=== PATIENT | female | born 1985 | race Caucasian/White ===

== ENCOUNTER 2016-11-11 17:15 | Emergency (ER) | payer OTHER ==
[2016-11-11 17:17] VITALS: BP 119/72; PULSE 66; RESP 20; TEMP 97.9; O2SAT 100
--- NOTE | 2016-11-11 17:30 | PD ---
HPI Chief Complaint: Bleeding Time Seen by Provider: 17:29 Travel History International Travel<30 days: No Contact w/Intl Traveler<30days: No Traveled to known affect area: No History of Present Illness HPI 31-year-old female LMP of August 29 came in with history of vaginal bleeding. She knows that she is and has had one OB visit where a Pap smear was done as per her. This was last Sunday. Patient started having some spotting since past 3 days but today the bleeding got more fluent. Now it is like a period bleed but no clots. She has slight sharp pain on the left adnexal area. No history of fever or chills. No severe cramps or spasm. Patient is A0. She has not had an ultrasound to establish an in utero . Patient is not speaking age but her friend is here with her who is doing the translation for her. [facility] Past Medical History Narrative Medical List of her past medical, surgical, social and family history is reviewed from the nursing note. ?: Social History Tobacco Use: No Allergies-Medications (Allergen,Severity, Reaction): Coded Allergies: No Known Allergies (Unverified , 11/11/16) Comments No known drug allergies. Reported Meds & Prescriptions Reported Meds & Active Scripts Active No Active Prescriptions or Reported Medications Narrative Medication Awaiting for the nurse to do the medical reconciliation. Review of Systems Except as stated in HPI: all other systems reviewed are Neg Physical Exam Narrative GENERAL: Awake, alert, no obvious distress SKIN: Focused skin assessment warm/dry. HEAD: Atraumatic. Normocephalic. EYES: Pupils equal and round. No scleral icterus. No injection or drainage. ENT: No nasal bleeding or discharge. Mucous membranes pink and moist. NECK: Trachea midline. No JVD. CARDIOVASCULAR: Regular rate and rhythm. No murmur appreciated. RESPIRATORY: No accessory muscle use. Clear to auscultation. Breath sounds equal bilaterally. GASTROINTESTINAL: Abdomen soft, non-tender, nondistended. Hepatic and splenic margins not palpable. MUSCULOSKELETAL: No obvious deformities. No clubbing. No cyanosis. No edema. NEUROLOGICAL: Awake and alert. No obvious cranial nerve deficits. Motor grossly within normal limits. Normal speech. PSYCHIATRIC: Appropriate mood and affect; insight and judgment normal. Data Data Last Documented VS Vital Signs Date Time Temp Pulse Resp B/P Pulse Ox O2 Delivery O2 Flow Rate FiO2 11/11/16 17:28 16 98 Room Air 11/11/16 17:17 97.9 66 119/72 Orders Beta Hcg (Quant/Titer) (11/11/16 17:34) Complete Blood Count With Diff (11/11/16 17:34) Basic Metabolic Panel (Bmp) (11/11/16 17:34) Type And Screen (11/11/16 17:34) Urinalysis - C+S If Indicated (11/11/16 17:34) Ed Urine Pregnancytest Poc (11/11/16 17:34) Ed Poc Ultrasound (11/11/16 17:34) Us Pelvis (Ques Preg/Ectopic) (11/11/16 ) Urine Culture (11/11/16 17:40) Nitrofurantoin Monohyd Macrocr (Macrobid (11/11/16 18:30) Acetaminophen (Tylenol) (11/11/16 21:45) Mandatory Outpatient Referral (11/11/16 21:48) Labs Laboratory Tests Test 11/11/16 17:40 White Blood Count 6.7 TH/MM3 Red Blood Count 4.34 MIL/MM3 Hemoglobin 14.1 GM/DL Hematocrit 41.2 % Mean Corpuscular Volume 95.0 FL Mean Corpuscular Hemoglobin 32.5 PG Mean Corpuscular Hemoglobin 34.2 % Concent Red Cell Distribution Width 13.4 % Platelet Count 232 TH/MM3 Mean Platelet Volume 7.7 FL Neutrophils (%) (Auto) 53.3 % Lymphocytes (%) (Auto) 36.9 % Monocytes (%) (Auto) 7.7 % Eosinophils (%) (Auto) 1.5 % Basophils (%) (Auto) 0.6 % Neutrophils # (Auto) 3.6 TH/MM3 Lymphocytes # (Auto) 2.5 TH/MM3 Monocytes # (Auto) 0.5 TH/MM3 Eosinophils # (Auto) 0.1 TH/MM3 Basophils # (Auto) 0.0 TH/MM3 CBC Comment DIFF FINAL Differential Comment Urine Color YELLOW Urine Turbidity HAZY Urine pH 6.0 Urine Specific [place] 1.019 Urine Protein TRACE mg/dL Urine Glucose (UA) NEG mg/dL Urine Ketones NEG mg/dL Urine Occult Blood MOD Urine Nitrite NEG Urine Bilirubin NEG Urine Urobilinogen LESS THAN 2.0 MG/DL Urine Leukocyte Esterase SMALL Urine RBC 150 /hpf Urine WBC 12 /hpf Urine Squamous Epithelial 4 /hpf Cells Urine Bacteria RARE /hpf Urine Mucus FEW /lpf Microscopic Urinalysis Comment CULTURE INDICATED Sodium Level 138 MEQ/L Potassium Level 3.5 MEQ/L Chloride Level 105 MEQ/L Carbon Dioxide Level 25.7 MEQ/L Anion Gap 7 MEQ/L Blood Urea Nitrogen 7 MG/DL Creatinine 0.58 MG/DL Estimat Glomerular Filtration 120 ML/MIN Rate Random Glucose 93 MG/DL Calcium Level 9.5 MG/DL Human Chorionic Gonadotropin, 2808 MIU/ML Quant Blood Type A POSITIVE Antibody Screen NEGATIVE Blood Bank Comment MDM Medical Decision Making Medical Screen Exam Complete: Yes Emergency Medical Condition: Yes Medical Record Reviewed: Yes Differential Diagnosis Threatened , ectopic , missed Narrative Course 6:03 PM awaiting for the blood test result. Based on the bedside pelvic ultrasound done by me and unable to see a fetus or cardiac activity and the gestational sac I have ordered an official ultrasound. Awaiting for the ultrasound to be done and resulted. 7:07 PM I peaked 10 while the chha was doing the study. She is doing the transabdominal part of it and has had just the gestational sac visualized as me. She is going to do the transvaginal as well. No fetus visualized or cardiac activity so far. The beta-hCG is back and measuring low for 8 weeks of gestation. 9:30 PM the ultrasound report finally got released which shows a pseudo- gestational sac with complex right adnexal structure which the radiologist is reading as either corpus luteal cyst or ectopic. I discussed the case with OB hospitalist Dr. Elizabeth and he recommended to have the patient follow up with her OB on Sunday or return sooner if symptoms worsen. I discussed this with the patient and her friend who will do the translation. I explained to them about the 2 possibilities. I was told that patient was seen by an [facility] with [facility] and was recommended to follow up with [facility] where she has an appointment on November 21 but has not seen anybody there yet. Given this possibility I think the chances of her being seen on Sunday are slim. I will give her a mandatory follow-up with the COMMERCIAL SALES CONSULTANT on-call. However of also let them know to return by Sunday evening to the ER if there is no follow-up appointment to get the beta-hCG repeat Quant done. Procedures Procedure Narrative Emergency Department Pelvic ultrasound was performed with patient consent. The curvilinear probe was used in the transverse and sagittal views within the suprapubic region revealing intrauterine gestational sac with fuzzy pole. No cardiac activity seen. Unable to measure the crown-rump length since the intrauterine material appeared to be very fuzzy and ill defined EKG Prior to Arrival: No Diagnosis Primary Impression: Empty gestational sac with ongoing Additional Impression: Vaginal bleeding Referrals: Erna Myers MD 2 days Primary Care Physician 2 days Additional Instructions: Please return to the ER if the condition worsens or any other new concerns. Otherwise follow-up with your OB first thing Sunday morning. Drink lots of fluid, no intercourse, no douching or tampons or anything in the vagina until seen by OB. You can take Tylenol or Motrin for the pain. Please have your OB repeat the beta hCG in 48 hours which should be on Sunday as well. In case the OB cannot see you on Sunday please return to the emergency room to get this blood work done. You will be given a mandatory follow-up with the OB who is name and number been given to you in this discharge instruction. Scripts No Active Prescriptions or Reported Meds Disposition: 01 DISCHARGE HOME Condition: Stable Nadya Brooke MD Nov 11, 2016 17:29
[2016-11-11 18:12] LABS: AUTOMATED NEUTROPHIL # 3.6 TH/MM3 (1.8-7.7); BASOPHIL % 0.6 % (0.0-2.0); EOSINOPHIL # 0.1 TH/MM3 (0-0.4); EOSINOPHIL % 1.5 % (0.0-4.0); HEMATOCRIT 41.2 % (35.0-46.0); HEMO FLAGS DIFF FINAL; LYMPH % 36.9 % (9.0-44.0); LYMPHOCYTE # 2.5 TH/MM3 (1.0-4.8); MEAN CORPUSCULAR HEMOGLOBIN 32.5 PG (27.0-34.0); MEAN CORPUSCULAR HGB CONC 34.2 % (32.0-36.0); MONO % 7.7 % (0.0-8.0); NEUT % 53.3 % (16.0-70.0); PLATELET COUNT 232 TH/MM3 (150-450); RED BLOOD COUNT 4.34 MIL/MM3 (4.00-5.30); RED CELL DISTRIBUTION WIDTH 13.4 % (11.6-17.2); WHITE BLOOD COUNT 6.7 TH/MM3 (4.0-11.0)
[2016-11-11 18:17] LABS: BACTERIA, URINE RARE /hpf; BLOOD, URINE MOD (NEG); COMMENT (UR) CULTURE INDICATED; CULTURE IF INDICATED CULTURE INDICATED; GLUCOSE,URINE NEG (NEG); KETONE, URINE NEG (NEG); MUCUS URINE FEW /lpf (OCC); NITRITE,URINE NEG (NEG); SQUAMOUS EPITHELIAL CELL URINE 4 /hpf (0-5); URINE COLOR YELLOW (YELLW/STRAW)
[2016-11-11] MEDS ORDERED: NITROFURANTOIN MONOHYD MACROCR 100 MG CAP PO ONE (18:30)
[2016-11-11 18:52] LABS: BICARBONATE 25.7 MEQ/L (21.0-32.0); POTASSIUM 3.5 MEQ/L (3.5-5.1)
--- NOTE | 2016-11-11 21:22 | RADRPT ---
EXAM DATE/TIME: 11/11/2016 18:51 [facility] COMPARISON: No previous studies available for comparison. INDICATIONS : Vaginal bleeding. LAB(S): Beta-hC MEDICAL HISTORY : . Vaginal bleeding. SURGICAL HISTORY : None. ENCOUNTER: Initial ACUITY: 3 days PAIN SCORE: 3/10 LOCATION: Bilateral pelvis MEASUREMENTS: UTERUS: 8.3 x 5.8 x 4.4 cm ENDOMETRIAL STRIPE: 8 mm RIGHT OVARY: 2.8 x 1.9 x 1.4 cm LEFT OVARY: cm CROWN RUMP LENGTH: = WKS DAYS FINDINGS: UTERUS: There is a 2.7 x 4.6 x 2.0 cm cystic area in the endometrial cavity. An embryonic pole or yolk sac is not seen. There is fluid within the endocervical canal. RIGHT OVARY: There is a 1.4 x 1.1 x 1.1 cm complex mass with a central cystic area a peripheral hypoechoic rim wit h some rim enhancement seen on the color images. There is prominent flow seen in the right adnexal re gion. LEFT OVARY: The left ovary appears normal in size. There is prominent flow seen in the left adnexal region. MISCELLANEOUS: No free fluid. CONCLUSION: 1. Large cystic area in the endometrial cavity without an embryonic pole. A. pseudo-gestational sac n eeds to be considered. 2. There is prominent vascular flow seen on the color images in the adnexal regions bilaterally. Ther e is a 1.4 cm complex cystic area at the right adnexa. A corpus luteum or an ectopic could have this appearance. The ectopic can be considered given the lack of a intrauterine gestation. Rios Griffin MD on November 11, 2016 at 21:15 Board Certified Radiologist. This report was verified electronically.
[2016-11-11] MEDS ORDERED: ACETAMINOPHEN 325 MG TAB PO ONE (21:45)
== END 2016-11-11 22:26 | disposition home or self-care (01) ==
LOC: NEPD 17:15
DX: O20.9 Hemorrhage in early pregnancy, unspecified (principal); R93.8 Abnormal findings on diagnostic imaging of other specified body structures; R10.2 Pelvic and perineal pain; Z3A.01 Less than 8 weeks gestation of pregnancy
CPT/HCPCS: 76700; 80048; 81001; 84702; 84703; 85025; 86850; 86900; 86901; 87086

== ENCOUNTER 2016-11-13 22:21 | Emergency (ER) | payer OTHER ==
[2016-11-13 22:24] VITALS: BP 123/74; PULSE 90; RESP 16; TEMP 98.9; O2SAT 100
--- NOTE | 2016-11-13 22:31 | PD ---
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 She was found at that time to have empty gestational sac. Her beta hCG was 2808. At that time she was found to have an area on the right that could either be a luteal cyst versus ectopic . Patient was discharged after the provider discussed her case with the [place] hospitalist OB. She was to follow-up with her [facility] today however the office was closed. She was instructed to return here for repeat beta hCG if she was unable to get into her [facility]. Patient reports continued vaginal bleeding, not heavy. Mild suprapubic pain, greater on the left than the right. No abnormal discharge the sites of bleeding. No fever or chills. No nausea or vomiting. No other symptoms to report. PFSH Past Medical History Medical History: Denies Significant Hx Social History Tobacco Use: No Allergies-Medications (Allergen,Severity, Reaction): Coded Allergies: No Known Allergies (Unverified , 11/11/16) Reported Meds & Prescriptions Reported Meds & Active Scripts Active No Active Prescriptions or Reported Medications Review of Systems Except as stated in HPI: all other systems reviewed are Neg Physical Exam Narrative GENERAL: Well-nourished female patient, mostly Peruvian-speaking, in no acute distress SKIN: Focused skin assessment warm/dry. HEAD: Atraumatic. Normocephalic. EYES: Pupils equal and round. No scleral icterus. No injection or drainage. ENT: No nasal bleeding or discharge. Mucous membranes pink and moist. NECK: Trachea midline. No JVD. CARDIOVASCULAR: Regular rate and rhythm. No murmur appreciated. RESPIRATORY: No accessory muscle use. Clear to auscultation. Breath sounds equal bilaterally. GASTROINTESTINAL: Abdomen soft, nondistended. Slight suprapubic tenderness to palpation. Hepatic and splenic margins not palpable. MUSCULOSKELETAL: No obvious deformities. No clubbing. No cyanosis. No edema. NEUROLOGICAL: Awake and alert. No obvious cranial nerve deficits. Motor grossly within normal limits. Normal speech. PSYCHIATRIC: Appropriate mood and affect; insight and judgment normal. Data Data Last Documented VS Vital Signs Date Time Temp Pulse Resp B/P Pulse Ox O2 Delivery O2 Flow Rate FiO2 11/13/16 22:24 98.9 90 16 123/74 100 Orders Iv Access Insert/Monitor (11/13/16 22:31) Beta Hcg (Quant/Titer) (11/13/16 22:31) Labs Laboratory Tests Test 11/13/16 22:55 Human Chorionic Gonadotropin, 2157 MIU/ML Quant MDM Medical Decision Making Medical Screen Exam Complete: Yes Emergency Medical Condition: Yes Medical Record Reviewed: Yes Differential Diagnosis Ectopic versus threatened versus unchanged miscarriage versus neoplasm versus menses Narrative Course 31-year-old female presents to the emergency department for recheck of her beta hCG. Patient appears without distress. Her vital signs are stable. She does have mild suprapubic tenderness to palpation otherwise abdominal exam is benign. Beta hCG is repeated and 2157. This is a decrease from her most recent visit. Patient's concerning area on ultrasound was on the right however her pain is more on the left. The right lower quadrant is benign on assessment. Her vital signs are stable. I discussed the patient my attending physician who agrees the patient can be discharged at this time and follow-up with her [facility]. Plan was discussed with the patient and her friend at bedside who is interpreting. They agree to return immediately with any acute worsening symptoms. Diagnosis Primary Impression: Empty gestational sac with ongoing Additional Impression: Vaginal bleeding Referrals: [facility] Patient Instructions: General Instructions, Threatened Miscarriage (ED) Additional Instructions: Follow-up with your [facility] Call Sunday for an appointment Return immediately to the emergency department with any acute worsening of symptoms Med/Other Pt SpecificInfo: No Change to Meds Scripts No Active Prescriptions or Reported Meds Disposition: 01 DISCHARGE HOME Condition: Stable FaviolaAisha JUAREZ Nov 13, 2016 22:31
[2016-11-13 23:47] LABS: BETA HCG QUANT 2157 MIU/ML (0-5)
== END 2016-11-14 00:28 | disposition home or self-care (01) ==
LOC: NEPD 22:21
DX: O26.899 Other specified pregnancy related conditions, unspecified trimester (principal); O20.9 Hemorrhage in early pregnancy, unspecified; Z3A.00 Weeks of gestation of pregnancy not specified
CPT/HCPCS: 84702; 99281

== ENCOUNTER 2016-12-06 16:39 | Emergency (ER) | payer OTHER ==
[~2016-12-06] VITALS: Ht 162.6 cm; Wt 58.0 kg
[2016-12-06 16:41] VITALS: BP 126/64; PULSE 98; RESP 24; TEMP 97.8; O2SAT 100
--- NOTE | 2016-12-06 19:45 | PD ---
HPI Chief Complaint: Bartender Manager Problem/Complaint Time Seen by Provider: 19:35 Travel History International Travel<30 days: No Contact w/Intl Traveler<30days: No Traveled to known affect area: No History of Present Illness HPI The patient was seen and examined in the presence of the nurse. This patient complains of vaginal bleeding and pelvic cramping. Patient was seen here 4 weeks ago and was thought to have spontaneous miscarriage or . She saw her OB provider today and was supposed to come back tomorrow to the OBs office for a repeat beta titer and ultrasound. However the patient didn't find a convenient because she wants to go to [place] tomorrow so she came to the emergency room to get her testing done. She is having cramping and bleeding. Severity is moderate. No alleviating factors. Duration 4 weeks. PFSH Past Medical History Thyroid Disease: Yes ?: Not Past Surgical History Surgical History: No Previous Surgery Social History Alcohol Use: No Tobacco Use: No Substance Use: No Allergies-Medications (Allergen,Severity, Reaction): Coded Allergies: No Known Allergies (Unverified , 11/21/16) Reported Meds & Prescriptions Reported Meds & Active Scripts Active Tramadol (Tramadol HCl) 50 Mg Tab 50 Mg PO Q6H PRN Review of Systems General / Constitutional: No: Fever Eyes: No: Visual changes HENT: No: Headaches Cardiovascular: No: Chest Pain or Discomfort Respiratory: No: Shortness of Breath Gastrointestinal: No: Abdominal Pain Genitourinary: Positive: Pelvic Pain, Vaginal Bleeding, No: Dysuria Musculoskeletal: No: Pain Skin: No Rash Neurologic: No: Weakness Psychiatric: No: Depression Endocrine: No: Polydipsia Hematologic/Lymphatic: No: Easy Bruising Physical Exam Narrative GENERAL: Well-nourished, well-developed patient with vaginal bleeding and pelvic cramping . SKIN: Focused skin assessment reveals no rash and nodules. Skin is Warm and dry. HEAD: Atraumatic. Normocephalic. EYES: Pupils equal and round. No scleral icterus. No injection or drainage. ENT: No nasal bleeding or discharge. Mucous membranes pink and moist. NECK: Trachea midline. No JVD. CARDIOVASCULAR: Regular rate and rhythm. No murmur appreciated. RESPIRATORY: No accessory muscle use. Clear to auscultation. Breath sounds equal bilaterally. GASTROINTESTINAL: Abdomen soft, some suprapubic tenderness without rebound or guarding, nondistended. Hepatic and splenic margins not palpable. MUSCULOSKELETAL: No obvious deformities. No clubbing. No cyanosis. No edema. NEUROLOGICAL: Awake and alert. No obvious cranial nerve deficits. Motor grossly within normal limits. Normal speech. PSYCHIATRIC: Appropriate mood and affect; insight and judgment normal. Pelvic: Cervix closed. Very scant blood in the vault. No active hemorrhage. No discharge. Data Data Last Documented VS Vital Signs Date Time Temp Pulse Resp B/P Pulse Ox O2 Delivery O2 Flow Rate FiO2 12/06/16 16:41 97.8 98 24 126/64 100 Room Air Orders Iv Access Insert/Monitor (12/06/16 19:42) Complete Blood Count With Diff (12/06/16 19:42) Beta Hcg (Quant/Titer) (12/06/16 19:42) Us Pelvis (Ques Pr/Ect)W Trans (12/06/16 ) Labs Laboratory Tests Test 12/06/16 19:58 White Blood Count 8.7 TH/MM3 Red Blood Count 3.95 MIL/MM3 Hemoglobin 13.2 GM/DL Hematocrit 37.7 % Mean Corpuscular Volume 95.6 FL Mean Corpuscular Hemoglobin 33.4 PG Mean Corpuscular Hemoglobin 34.9 % Concent Red Cell Distribution Width 13.1 % Platelet Count 218 TH/MM3 Mean Platelet Volume 7.2 FL Neutrophils (%) (Auto) 87.3 % Lymphocytes (%) (Auto) 7.4 % Monocytes (%) (Auto) 5.0 % Eosinophils (%) (Auto) 0.0 % Basophils (%) (Auto) 0.3 % Neutrophils # (Auto) 7.6 TH/MM3 Lymphocytes # (Auto) 0.6 TH/MM3 Monocytes # (Auto) 0.4 TH/MM3 Eosinophils # (Auto) 0.0 TH/MM3 Basophils # (Auto) 0.0 TH/MM3 CBC Comment DIFF FINAL Differential Comment Human Chorionic Gonadotropin, 92 MIU/ML Quant MDM Medical Decision Making Medical Screen Exam Complete: Yes Emergency Medical Condition: Yes Medical Record Reviewed: Yes Differential Diagnosis Spontaneous miscarriage, retained placental products, ectopic Narrative Course I have reviewed the patient's electronic medical record. Reviewed her visit from November 11 and November 13, 2016 including her labs and ultrasound results IV placed CBC is normal Beta hCG is down from 1999 to Transvaginal ultrasound reveals an abnormal gestational sac in the uterus that' s not consistent with a viable fetus. Patient had a spontaneous miscarriage several weeks ago but is having persistent bleeding and cramping. She is to call her OB physician tomorrow who she just saw today. She will discuss D&C. [place] for outpatient follow-up. I wrote her 15 tramadol. Diagnosis Primary Impression: Spontaneous miscarriage Additional Impressions: Pelvic cramping Vaginal bleeding Additional Instructions: Call OB physician tomorrow for follow-up recommendations The patient was warned about potential sedation for the medications they will receive on prescription. Med/Other Pt SpecificInfo: Prescription(s) given Scripts Tramadol 50 Mg Tab50 Mg PO Q6H PRN (PAIN) #15 TAB Ref 0 Prov:Bhanu Segovia MD 12/06/16 Disposition: 01 DISCHARGE HOME Condition: Stable Bhanu Segovia MD Dec 06, 2016 19:45
[2016-12-06 20:10] LABS: AUTOMATED NEUTROPHIL # 7.6 TH/MM3 (1.8-7.7); BASOPHIL % 0.3 % (0.0-2.0); HEMATOCRIT 37.7 % (35.0-46.0); HEMO FLAGS DIFF FINAL; LYMPH % 7.4 % (9.0-44.0); LYMPHOCYTE # 0.6 TH/MM3 (1.0-4.8); MEAN CELL VOLUME 95.6 FL (80.0-100.0); MEAN CORPUSCULAR HEMOGLOBIN 33.4 PG (27.0-34.0); MEAN CORPUSCULAR HGB CONC 34.9 % (32.0-36.0); NEUT % 87.3 % (16.0-70.0); PLATELET COUNT 218 TH/MM3 (150-450); RED BLOOD COUNT 3.95 MIL/MM3 (4.00-5.30); RED CELL DISTRIBUTION WIDTH 13.1 % (11.6-17.2); WHITE BLOOD COUNT 8.7 TH/MM3 (4.0-11.0)
[2016-12-06 20:36] LABS: BETA HCG QUANT 92 MIU/ML (0-5)
--- NOTE | 2016-12-06 22:29 | RADRPT ---
EXAM DATE/TIME: 12/06/2016 21:28 [facility] COMPARISON: No previous studies available for comparison. INDICATIONS : Bleeding with . LAB(S): Beta-hC MEDICAL HISTORY : Hypothyroidism. Endometriosis. Polycystic ovarian syndrome. Vaginal infection. SURGICAL HISTORY : None. ENCOUNTER: Subsequent ACUITY: 1 month PAIN SCORE: 7/10 LOCATION: Bilateral pelvis MEASUREMENTS: TRANSABDOMINAL: UTERUS: 9.4 x 7.2 x 5.6 cm TRANSVAGINAL: ENDOMETRIAL STRIPE: 8 mm RIGHT OVARY: 2.2 x 1.8 x 1.1 cm LEFT OVARY: 3.1 x 1.8 x 1.8 cm FREE FLUID: No FINDINGS: UTERUS: Irregular gestational sac. No yolk sac or pole. There is also fluid in the endometrial canal. RIGHT OVARY: Simple cyst measures 9 x 5 x 6 mm. LEFT OVARY: Simple cyst measures 15 x 13 x 11 mm. Smaller cystic structures also noted. MISCELLANEOUS: No free fluid. CONCLUSION: 1. Irregular gestational sac without yolk sac or pole likely nonviable , although the neck Neck still cannot be excluded given the findings but felt to be less likely.Close followup recom mended. 2. Dominant follicles in each ovary. 1. Juliocesar Shoemaker MD on December 06, 2016 at 22:24 Board Certified Radiologist. This report was verified electronically.
[2016-12-06] MEDS ORDERED: TRAM50TA PO (22:54)
== END 2016-12-06 23:08 | disposition home or self-care (01) ==
LOC: NEPD 16:39
DX: O03.9 Complete or unspecified spontaneous abortion without complication (principal); R10.2 Pelvic and perineal pain; O99.280 Endocrine, nutritional and metabolic diseases complicating pregnancy, unspecified trimester; E07.9 Disorder of thyroid, unspecified
CPT/HCPCS: 76700; 76817; 84702; 85025; 99284

== ENCOUNTER → 2016-12-12 | Day surgery (SDC) | payer OTHER ==
--- NOTE | 2016-12-07 16:31 | MH ---
cc: JAMIE FERRARI MD DATE OF ADMISSION: 12/12/2016 REASON FOR ADMISSION Dilatation and curettage. HISTORY OF PRESENT ILLNESS This patient is a 31-year-old female, she is 2, para 1, who first reported having an incomplete miscarriage on 11/11. She was seen in the office and at that time was bleeding lightly and she was given the option of conservative management or dilatation and curettage. She elected to not have a dilatation and curettage and then was seen several times within the office and in the emergency room for bleeding. She was just seen recently on 12/06 and at that time had an ultrasound scan which revealed a pseudosac in the uterus and because of the bleeding at that time the patient wished to proceed with dilatation and curettage. MEDICAL HISTORY The patient's medical history is significant for hypothyroidism. SOCIAL HISTORY She is a nonsmoker, nondrinker. ALLERGIES SHE HAS NO KNOWN ALLERGIES TO MEDICATION. SURGICAL HISTORY Essentially noncontributory. REVIEW OF SYSTEMS Essentially noncontributory. PHYSICAL EXAMINATION GENERAL: The patient is well-developed, well-nourished, in no acute distress. VITAL SIGNS: Blood pressure was 110/65, pulse was 70, respirations were 12. HEAD, EYES, EARS, NOSE AND THROAT: Negative. CHEST: Clear to auscultation. CARDIOVASCULAR: Revealed a regular rate. ABDOMEN: The abdomen was soft, bowel sounds were positive. PELVIC EXAMINATION: The cervix was slightly dilated. The patient was bleeding lightly. There were no adnexal masses palpable. EXTREMITIES: Revealed no cyanosis, clubbing or edema. NEUROPSYCHIATRIC: The patient oriented x3 and showed no gross neurocranial deficit. IMPRESSION Impression on admission was intrauterine demise, incomplete . PLAN The plan is for suction and sharp curetting. MD VARUN Aleman/JULIUS /2:09 PM /4:04 PM
[~2016-12-12] VITALS: Ht 162.6 cm; Wt 58.2 kg
[~2016-12-12] MED LIST: ACETAMINOPHEN 325 MG TAB ONE; ACETAMINOPHEN 325 MG TAB PO ONE; CHLORHEXIDINE GLUCONATE 2 % 1 PACK (2 CLOTHS) TOPICAL PRN; DO NOT ADM ANY ANTICOAGULANT DRUGS PRN; FAMOTIDINE 20 MG/2 ML VIAL ONE; INSULIN HUMAN REGULAR 1,000 UNITS/10 ML VIAL SQ PRN; KETOROLAC TROMETHAMINE 60 MG/2 ML (IM) VIAL IM ONE; LACTATED RINGER'S 1000 ML IV PRN; LEVO13.5 I-UTERINE; METOPROLOL TARTRATE 25 MG TAB PO PRN; MIDAZOLAM HCL 2 MG/2 ML VIAL ONE; ONDANSETRON HCL 4 MG/2 ML VIAL IV PUSH ONE; OXYTOCIN 10 UNIT/ML AMP ONE; PHENYLEPH/NS 1000 MCG/10 ML SYR IV ONE; POVIDONE IODINE 5% (ANTISEPSIS KIT) 4 APPLICATIONS EACH NARE PRN; PROPOFOL 200 MG/20 ML AMP IV ONE; SODIUM CHLORID 0.9% 500 ML IV PRN; TRAM50TA PO; ceFAZolin 2 GM PREMIX 50 ML IV SCH; ePHEDrine/NS 25 MG/5 ML SYR IV ONE
[2016-12-12 06:28] VITALS: BP 112/65; PULSE 77; RESP 20; TEMP 98.1; O2SAT 100
[2016-12-12 09:59] VITALS: BP 94/60; PULSE 73; RESP 20; TEMP 98.2; O2SAT 100
--- NOTE | 2016-12-12 17:46 | MP ---
cc: GILBERTO SAMANIEGO MD DATE OF SURGERY 12/12/2016 PREOPERATIVE DIAGNOSIS Incomplete . POSTOPERATIVE DIAGNOSIS Incomplete . OPERATION Dilation and suction and sharp curetting. SURGEON Gilberto Samaniego MD ANESTHESIA General. ESTIMATED BLOOD LOSS 150 cc. COMPLICATIONS None. FINDINGS Consistent with an 8 week incomplete . PATHOLOGY Products of conception. PROCEDURE DETAILS The patient prepped and draped in the dorsolithotomy position. A weighted speculum was placed in the posterior vaginal vault. The anterior lips were grasped with a single-tooth tenaculum. The cervix was dilated up using Carlos dilators and then a #8 suction curetting instrument was entered in to the endometrial cavity. Suction curettings were taken after which sharp curetting instrument was entered in to the endometrial cavity and sharp curettings were taken. After good hemostasis was noted, tenaculum and speculum were removed. The patient returned to recovery room in stable condition. Gilberto Samaniego MD [id number] /7:58 AM /5:30 PM
== END | disposition home or self-care (01) ==
LOC: HSDC 05:54
PROVIDERS: ATTEND Obstetrics & Gynecology
DX: O03.4 Incomplete spontaneous abortion without complication (principal); E03.9 Hypothyroidism, unspecified
CPT/HCPCS: 01965; 59812; 86901; 88305; J0690; J1885; J2250; J2370; J2405; J2590; J3010; J7120